=== PATIENT | female | born 1995 | race Two or more races ===

== ENCOUNTER 2021-02-18 11:10 | Outpatient (CLI) | payer MEDICAID ==
[~2021-02-18] VITALS: Ht 165.1 cm; Wt 114.8 kg
== END 2021-02-18 13:35 | disposition home or self-care (01) ==
LOC: LDOP 11:10
PROVIDERS: ATTEND Obstetrics & Gynecology
DX: O36.8130 Decreased fetal movements, third trimester, not applicable or unspecified (principal); Z3A.28 28 weeks gestation of pregnancy
CPT/HCPCS: 59025; 76819

== ENCOUNTER 2021-02-27 18:22 | Outpatient (CLI) | payer MEDICAID ==
[~2021-02-27] VITALS: Ht 165.1 cm; Wt 115.0 kg
[2021-02-27 18:51] LABS: MICROSCOPIC INDICATED
== END 2021-02-27 21:56 | disposition home or self-care (01) ==
LOC: LDOP 18:22
PROVIDERS: ATTEND Obstetrics & Gynecology
DX: O30.003 Twin pregnancy, unspecified number of placenta and unspecified number of amniotic sacs, third trimester (principal); O36.4XX0 Maternal care for intrauterine death, not applicable or unspecified; Z3A.29 29 weeks gestation of pregnancy
CPT/HCPCS: 59025; 76819; 81001; 87086

== ENCOUNTER 2021-03-26 18:10 | Outpatient (CLI) | payer MEDICAID ==
[~2021-03-26] VITALS: Ht 165.1 cm; Wt 115.0 kg
== END 2021-03-26 20:55 | disposition home or self-care (01) ==
LOC: LDOP 18:10
PROVIDERS: ATTEND Obstetrics & Gynecology
DX: Z34.93 Encounter for supervision of normal pregnancy, unspecified, third trimester (principal); Z3A.33 33 weeks gestation of pregnancy
CPT/HCPCS: 36415; 59025; 85460

== ENCOUNTER 2021-03-27 09:36 | Outpatient (CLI) | payer MEDICAID ==
[2021-03-27 10:12] VITALS: BP 117/72
== END 2021-03-27 11:31 | disposition home or self-care (01) ==
LOC: LDOP 09:36
PROVIDERS: ATTEND Obstetrics & Gynecology
DX: Z34.93 Encounter for supervision of normal pregnancy, unspecified, third trimester (principal); Z3A.33 33 weeks gestation of pregnancy
CPT/HCPCS: 59025

== ENCOUNTER 2021-04-10 12:34 | Inpatient (IN) | payer MEDICAID ==
[~2021-04-10] VITALS: Ht 165.1 cm; Wt 115.0 kg
[2021-04-10 13:00] VITALS: BP 123/87
== END 2021-04-11 20:21 | disposition home or self-care (01) | DRG 832 ==
LOC: LDOP 12:34 → LDIP 14:55
PROVIDERS: ADMIT Obstetrics & Gynecology; ATTEND Obstetrics & Gynecology
DX: O30.043 Twin pregnancy, dichorionic/diamniotic, third trimester (principal); O36.4XX2 Maternal care for intrauterine death, fetus 2; Z3A.35 35 weeks gestation of pregnancy; O36.8332 Maternal care for abnormalities of the fetal heart rate or rhythm, third trimester, fetus 2

== ENCOUNTER 2021-04-12 12:13 | Outpatient (CLI) | payer MEDICAID | END 2021-04-12 13:40 | disposition home or self-care (01) | LOC: LDOP 12:13 | PROVIDERS: ATTEND Obstetrics & Gynecology | DX: Z34.93 Encounter for supervision of normal pregnancy, unspecified, third trimester (principal); Z3A.35 35 weeks gestation of pregnancy | CPT/HCPCS: 59025 ==

== ENCOUNTER 2021-04-16 08:06 | Inpatient (IN) | payer MEDICAID ==
[~2021-04-16] VITALS: Ht 165.1 cm; Wt 127.0 kg
[2021-04-16 09:10] VITALS: BP 122/83
[2021-04-16 09:29] LABS: BASOPHILS % (AUTO) 1 % (0-1); EOSINOPHILS % (AUTO) 3 % (1-7); LYMPHOCYTES % (AUTO) 28 % (22-44); MEAN CORPUSCULAR HEMOGLOBIN 29.8 pg (27.0-34.8); MEAN CORPUSCULAR HGB CONC 33.4 g/dL (32.4-35.8); MEAN PLATELET VOLUME 8.2 fL (7.4-10.4); MONOCYTES % (AUTO) 8 % (2-9); NEUTROPHILS % (AUTO) 60 % (42-75); PLATELET COUNT 207 x10^3/uL (130-400); RED BLOOD COUNT 4.29 x10^6/uL (3.82-5.3); RED CELL DISTRIBUTION WIDTH 21.9 % (9.6-15.2)
[2021-04-16] MEDS ORDERED: D5%-LACTATED RINGERS 1,000 ML IV SCH (09:30)
[2021-04-16] MEDS ORDERED: MISOPROSTOL 25 MCG TABLET VG PRN (09:30)
[2021-04-16] MEDS ORDERED: TERBUTALINE 1 MG/ML, 1ML SQ PRN (09:30)
[2021-04-16] MEDS ORDERED: ONDANSETRON 2MG/ML, 2ML IVPush PRN (09:30)
[2021-04-16] MEDS ORDERED: FENTANYL PF 100 MCG/2ML IV PRN (09:30)
[2021-04-16] MEDS ORDERED: OXYTOCIN 30U/ 0.9% NaCL 500ML 500 ML IV ONE (09:30)
[2021-04-16] MEDS ORDERED: FENTANYL PF 100 MCG/2ML IVPush PRN (09:30)
[2021-04-16] MEDS ORDERED: OXYTOCIN 30U/ 0.9% NaCL 500ML 500 ML IV PRN (09:30)
[2021-04-16] MEDS ORDERED: LACTATED RINGERS 1,000 ML IV SCH (09:30)
[2021-04-16] MEDS ORDERED: TERBUTALINE 1 MG/ML, 1ML IVPush PRN (09:30)
[2021-04-16] MEDS ORDERED: MISOPROSTOL 25 MCG TABLET ONE (09:55)
[2021-04-16] MEDS ORDERED: LACTATED RINGERS 1,000 ML INTUTE SCH (20:00)
[2021-04-16] MEDS ORDERED: LACTATED RINGERS 1,000 ML INTUTE PRN (20:00)
[2021-04-16] MEDS ORDERED: METHYLERGONOVINE 0.2 MG/ML IM ONE (20:58)
[2021-04-16] MEDS ORDERED: NEWBORN KIT ONE (20:59)
[2021-04-16] MEDS: OXYTOCIN 30U/ 0.9% NaCL 500ML 500 ML IV SCH ×3 (21:25→23:26)
[2021-04-16] MEDS ORDERED: IBUPROFEN 600 MG TABLET ONE (21:41)
[2021-04-16] MEDS ORDERED: TRANEXAMIC ACID 100 MG/ML, 10ML IV ONE (22:00)
[2021-04-16] MEDS ORDERED: ONDANSETRON 2MG/ML, 2ML IV PRN (22:00)
[2021-04-16] MEDS ORDERED: CALCIUM CARBONATE 500 MG TAB.CHEW PO PRN (22:00)
[2021-04-16] MEDS ORDERED: MAGNESIUM HYDROXIDE 8%, 30ML UDC PO PRN (22:00)
[2021-04-16] MEDS ORDERED: MISOPROSTOL 200 MCG TABLET PR PRN (22:00)
[2021-04-16] MEDS ORDERED: IBUPROFEN 800 MG TABLET PO PRN (22:00)
[2021-04-16] MEDS ORDERED: SIMETHICONE 80 MG CHEW TAB PO PRN (22:00)
[2021-04-16] MEDS ORDERED: METHYLERGONOVINE 0.2 MG/ML IM PRN (22:00)
[2021-04-16] MEDS ORDERED: OXYcodone IR 5MG TABLET PO PRN (22:00)
[2021-04-16] MEDS ORDERED: ACETAMINOPHEN 325 MG TABLET PO PRN ×2 (22:00)
[2021-04-16] MEDS ORDERED: CARBOPROST TROMETHAMINE 250 MCG/ML, 1ML IM PRN (22:00)
[2021-04-16] MEDS ORDERED: OXYcodone/APAP 5/325MG TABLET PO PRN (22:00)
[2021-04-16] MEDS ORDERED: OXYTOCIN 10 UNITS/ML, 1ML IM PRN (22:00)
[2021-04-16] MEDS ORDERED: MISOPROSTOL 200 MCG TABLET PO PRN (22:00)
[2021-04-17] MEDS ORDERED: DIPHENOXYLATE/ATROPINE TABLET PO PRN
[2021-04-17 00:10] VITALS: BP 138/82
[2021-04-17] MEDS: OXYTOCIN 30U/ 0.9% NaCL 500ML 500 ML IV SCH ×16 (00:52→23:48)
[2021-04-17] MEDS ORDERED: FENTANYL PF 100 MCG/2ML IVPush ONE (02:30)
[2021-04-17 04:43] LABS: BASOPHILS % (AUTO) 0 % (0-1); EOSINOPHILS % (AUTO) 1 % (1-7); LYMPHOCYTES % (AUTO) 17 % (22-44); MEAN CORPUSCULAR HEMOGLOBIN 30.6 pg (27.0-34.8); MEAN CORPUSCULAR HGB CONC 34.2 g/dL (32.4-35.8); MEAN PLATELET VOLUME 8.3 fL (7.4-10.4); MONOCYTES % (AUTO) 8 % (2-9); NEUTROPHILS % (AUTO) 74 % (42-75); PLATELET COUNT 179 x10^3/uL (130-400); RED BLOOD COUNT 3.71 x10^6/uL (3.82-5.3); RED CELL DISTRIBUTION WIDTH 21.4 % (9.6-15.2)
[2021-04-17 04:45] VITALS: BP 112/78
[2021-04-17 07:25] VITALS: BP 117/76
[2021-04-17] MEDS ORDERED: THROMBIN 5,000 UNIT VIAL TP ONE (08:00)
[2021-04-17] MEDS ORDERED: MISOPROSTOL 200 MCG TABLET ONE (08:00)
[2021-04-17] MEDS ORDERED: METHYLERGONOVINE 0.2 MG/ML IM ONE (08:00)
[2021-04-17 12:10] VITALS: BP 105/81
[2021-04-17] MEDS: PRENATAL VIT/IRON/FA 1 EACH TABLET PO SCH (15:39)
[2021-04-17] MEDS: DOCUSATE 100 MG CAPSULE PO PRN (15:39)
[2021-04-17 16:10] VITALS: BP 115/80
[2021-04-17 19:15] VITALS: BP 98/67
[2021-04-18] MEDS: OXYTOCIN 30U/ 0.9% NaCL 500ML 500 ML IV SCH ×5 (01:14→04:12)
[2021-04-18 08:15] VITALS: BP 105/70
[2021-04-18] MEDS: PRENATAL VIT/IRON/FA 1 EACH TABLET PO SCH (10:20)
[2021-04-18] MEDS: DOCUSATE 100 MG CAPSULE PO PRN (10:20)
[2021-04-18] MEDS ORDERED: OXYC1TAB14 PO (13:24)
[2021-04-18] MEDS ORDERED: IBUP-1222 PO (13:24)
== END 2021-04-18 15:50 | disposition home or self-care (01) | DRG 807 ==
LOC: LDIP 08:06 → 2NW 04-17 00:03
PROVIDERS: ADMIT Obstetrics & Gynecology; ATTEND Obstetrics & Gynecology
PROC: 10E0XZZ Delivery of Products of Conception, External Approach (ICD-10-PCS; principal; 2021-04-16)
PROC: 0W8NXZZ Division of Female Perineum, External Approach (ICD-10-PCS; 2021-04-16)
PROC: 10907ZC Drainage of Amniotic Fluid, Therapeutic from Products of Conception, Via Natural or Artificial Opening (ICD-10-PCS; 2021-04-16)
DX: O30.003 Twin pregnancy, unspecified number of placenta and unspecified number of amniotic sacs, third trimester (principal); Z37.0 Single live birth; Z3A.36 36 weeks gestation of pregnancy; Z20.822 Contact with and (suspected) exposure to COVID-19
CPT/HCPCS: 36415; J7121; 85025; 86592; 86850; 86900; 87635; G0378; J3010; J2210; J2590; J7120